=== PATIENT | male | born 2000 | race Caucasian/White ===

== ENCOUNTER 2022-01-26 16:48 | Emergency (ER) | payer OTHER, SELFPAY ==
[2022-01-26 16:51] VITALS: BP 154/91; PULSE 105; RESP 18; TEMP 36.7; O2SAT 97; BMI 34.7
[2022-01-26 16:52] VITALS: BMI 34.7
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
--- NOTE | 2022-01-26 18:43 | PC.NURSE ---
Pt refused to wear abdomen/back brace. Educated pt on benefits and terminal carman effects of wearing the brace. Family at [facility] aware
[2022-01-26 18:45] VITALS: BP 145/88; PULSE 78; RESP 16; TEMP 36.6; O2SAT 98
== END 2022-01-26 18:46 | disposition home or self-care (01) ==
PROVIDERS: Emergency Provider Emergency Medicine
DX: S32.010A Wedge compression fracture of first lumbar vertebra, initial encounter for closed fracture (principal); V59.3XXA Occupant (driver) (passenger) of pick-up truck or van injured in unspecified nontraffic accident, initial encounter
CPT/HCPCS: 72131; 80307; 99284